=== PATIENT | male | born 1945 | race Caucasian/White ===

== ENCOUNTER 2019-11-12 20:00 | Emergency (ER) | payer MEDICARE ==
[2019-11-12 20:28] LABS: BASO % 0.2 % (0.0-1.0); EOS # 0.1 10*3/uL (0.0-0.4); EOS % 2.7 % (1.0-4.0); HEMATOCRIT 38.1 % (42.0-52.0); LYMPH # 1.3 10*3/uL (1.3-4.4); LYMPH % 30.9 % (27.0-41.0); MEAN CELL VOLUME 98.2 fl (80.0-94.0); MEAN CORPUSCULAR HGB CONC 32.5 g/dl (33.0-37.0); MEAN PLATELET VOLUME 9.4 fl (9.6-12.3); MONO # 0.3 10*3/uL (0.1-1.0); MONO % 8.4 % (3.0-9.0); NEUT # 2.3 10*3/uL (2.3-7.9); NEUT % 57.3 % (47.0-73.0); PLATELET COUNT AUTOMATED 72 10*3/uL (130-400); RED BLOOD COUNT 3.88 10*6/uL (4.50-5.90); RED CELL DISTRI WIDTH 13.3 % (0-14.5)
[2019-11-12 20:43] LABS: ALBUMIN 2.9 gm/dl (3.1-4.5); ALKALINE PHOSPHATASE 56 U/L (45-117); BUN 13 mg/dl (7-24); CHLORIDE 108 mmol/L (98-107); CREATININE 0.87 mg/dL (0.70-1.30); POTASSIUM 3.9 mmol/L (3.5-5.1); SGOT/AST 23 IU/L (3-35); SGPT/ALT 20 U/L (12-78); SODIUM 142 mmol/L (136-145); TOTAL PROTEIN 5.8 gm/dL (6.4-8.2)
[2019-11-12 20:50] LABS: ACETAMINOPHEN (TYLENOL) < 5.0 ug/ml (10-30)
[2019-11-12 20:55] LABS: ETHYL ALCOHOL < 3.0 mg/dl (<3)
[2019-11-12 21:49] LABS: URINE AMPHETAMINES < 1000 (1000ng/ml); URINE BARBITURATES < 200 (200ng/ml); URINE BENZODIAZEPINES < 200 (200ng/ml); URINE CANNABINOIDS (THC) < 50 (50ng/ml); URINE COCAINE < 300 (300ng/ml); URINE METHADONE < 300 (300ng/ml); URINE OPIATES < 300 (300ng/ml)
[2019-11-12 21:54] LABS: URINE PHENCYCLIDINE < 25 (25ng/ml)
[2019-11-12 21:58] LABS: BACTERIA TRACE; BILIRUBIN NEGATIVE (NEGATIVE); BLOOD NEGATIVE (NEGATIVE); CLARITY CLEAR (CLEAR); COLOR YELLOW (YELLOW); EPITHELIAL CELLS 0-2; GLUCOSE NEGATIVE (NEGATIVE); KETONE 2+ (NEGATIVE); LEUKO ESTERASE NEGATIVE (NEGATIVE); NITRITE NEGATIVE (NEGATIVE); RBC 0-2 rbc/hpf (0-2); SPECIFIC GRAVITY 1.025 (1.005-1.030); UROBILINOGEN 0.2 E.U./dl (0.2-1.0); WBC 0-2 wbc/hpf (0-5)
[2019-11-12] MEDS ORDERED: LIPITOR10 MG PO (23:58)
[2019-11-12] MEDS ORDERED: ASPIRIN ADULT L81 M1 PO (23:58)
[2019-11-12] MEDS ORDERED: DEPAKOTE250 MG PO (23:59)
[2019-11-13] MEDS ORDERED: EXELON1 EACH T
[2019-11-13] MEDS ORDERED: DEPAKOTE ER250 MG PO
[2019-11-13] MEDS ORDERED: Amaryl2 MG PO
[2019-11-13] MEDS ORDERED: KEPPRA750 MG PO (00:01)
[2019-11-13] MEDS ORDERED: TRAD5TAB1 PO (00:02)
[2019-11-13] MEDS ORDERED: GLUCOPHAGE500 M1 PO (00:02)
[2019-11-13] MEDS ORDERED: VITAMIN D3125 MC1 PO (00:03)
== END 2019-11-12 22:48 | disposition home health service (06) ==
LOC: ED 20:00
PROVIDERS: Emergency Medicine
DX: F63.81 Intermittent explosive disorder (principal); E11.9 Type 2 diabetes mellitus without complications; F03.90 Unspecified dementia, unspecified severity, without behavioral disturbance, psychotic disturbance, mood disturbance, and anxiety; Z03.818 Encounter for observation for suspected exposure to other biological agents ruled out

== ENCOUNTER 2019-11-12 22:46 | Inpatient (IN) | payer MEDICARE ==
[~2019-11-12] VITALS: Ht 182.8 cm; Wt 84.6 kg
[2019-11-12 22:50] VITALS: BP 139/83
--- NOTE | 2019-11-12 22:50 | NUR ---
TOMAS ANTHONYYOHANNES a 74 year old M admitted via wheel chair from the EMERGENCY ROOM as a voluntary admission. Arrived on unit at 2250. ALLERGIES: NO KNOWN ALLERGIES. Vital signs are: 99.7-97-20 139/83. The client signed the following forms with stated understanding: Authorization For The Release of Medical Information, Clothing List, Consent to Voluntary Admission and Hospitalization, Consent and Release Forms/Receipt of Rights, Acknowledgement of Advance Directive Information, Behavioral Health Consent Form. Admitted under the services of Dr. ERROL BERNARDJACQUELINE. A search was conducted and hazardous articles were removed. Client was oriented to the unit. TIM MONTGOMERY
[2019-11-12] MEDS ORDERED: ASPIRIN ADULT L81 M1 PO (23:58)
[2019-11-12] MEDS ORDERED: LIPITOR10 MG PO (23:58)
[2019-11-12] MEDS ORDERED: DEPAKOTE250 MG PO (23:59)
[2019-11-13] MEDS ORDERED: EXELON1 EACH T
[2019-11-13] MEDS ORDERED: Amaryl2 MG PO
[2019-11-13] MEDS ORDERED: DEPAKOTE ER250 MG PO
[2019-11-13] MEDS ORDERED: KEPPRA750 MG PO (00:01)
[2019-11-13] MEDS ORDERED: TRAD5TAB1 PO (00:02)
[2019-11-13] MEDS ORDERED: GLUCOPHAGE500 M1 PO (00:02)
[2019-11-13] MEDS ORDERED: VITAMIN D3125 MC1 PO (00:03)
--- NOTE | 2019-11-13 00:15 | NUR ---
Called and notified Dr. Moore regarding patient admission and consult was placed under Dr. Jefferson for medical management.
--- NOTE | 2019-11-13 00:30 | NUR ---
Dr. Moore here and talked with patient. Awaiting new orders.
--- NOTE | 2019-11-13 06:00 | NUR ---
Called and notified Dr. Elkins regarding patient falling in shower. Notified doctor of patient having an abrasion on back that was not present on admission and patient denies any pain or discomfort at this time. Dr. Elkins said to observe patient at this time.
[2019-11-13 06:21] LABS: CHOLESTEROL 152 mg/dL (<200); HDL CHOLESTEROL 49 mg/dl (40-60); LDL CHOLESTEROL 75 mg/dL (9-159); TRIGLYCERIDES 140 mg/dl (<150); VLDL CHOLESTEROL 28 mg/dL (6-40)
--- NOTE | 2019-11-13 06:24 | NUR ---
PT OBSERVED BY STAFF PACING AROUND ROOM COVERED IN BM, ALERT TO PERSON AND PLACE WITH CONFUSION. PT ASSISTED BY STAFF INTO SHOWER ROOM TO PROVIDE INCONTINENT CARE. THIS RN WAS TURNING ON WATER AND INFORMED THE PATIENT TO WAIT UNTIL THIS RN CAN ASSIST HIM IN SHOWER. PT PROCEEDED INTO SHOWER DESPITE DIRECTION FROM THIS RN TO WAIT AND FELL AT 0540. PT OBSERVED TO FALL ON LEFT SIDE, DID NOT HIT HEAD. PT DENIES ANY DISCOMFORT OR PAIN. PT ASSISTED TO CHAIR REQUESTED BY PATIENT. VITALS TAKEN AND RECORDED. T-97.4, P-97, R-18, BP 141/67, SPO2 96% ON ROOM AIR, BSG 115. ABRASION NOTED ON BACK, NO OTHER VISIBLE INJURIES NOTED. PT ABLE TO MOVE ALL EXTREMITIES WITH GOOD RANGE OF MOTION WITH NO COMPLAINTS OF DISCOMFORT, PT STATES "IM DOING JUST FINE, IM NOT EVEN HURT". PATIENT REMAINS ALERT AND ORIENTED PER BASELINE. NO DISTRESS NOTED. NURSING MID LEVEL CLINICIAN NOTIFIED AT 0558. DAUGHTER SUHA MALIK NOTIFIED AT 0624.
--- NOTE | 2019-11-13 06:39 | NUR ---
TOMAS ANTHONYYOHANNES [id number] Please refer to the physician's history and physical for past medical history, comorbid conditions, and allergies. Diagnosis: INTERMITTENT EXPLOSIVE DISORDER Wander Score: 19,LOW OR NO RISK WOUND DESCRIPTIONS: Wound Number: 1 Location of the wound: middle of back Type of wound: abrasion Thickness: Partial Size: 15.5cm x 3.0cm x 0.1cm Tunneling: none Undermining: none Sinus Tract: none Presence of Exudate: none Amount: None Color: Red Odor: None Periwound Skin Appearance: Normal Wound edges: approximated Pain (associated with wound): none at time of assessment How does patient state this happened? pt stated it was from the shower this morning Surface the patient is resting on: Proform SKIN PREVENTION RECOMMENDATION: 1. Pressure redistribution support surface as appropriate 2. Elevate heels 3. Remove boots/TEDS every shift and reapply 4. Head of bed 30 degrees as tolerated 5. Assess nutrition and hydration 6. Manage moisture 7. Avoid the use of containment devices while in bed 8. Use absorptive products on surfaces limit layers of linens on bed 9. Turn and reposition every 1-2 hours in bed and every 1 hour in chair as tolerated 10. Weight shifts every 15 minutes while up in chair 11. Offloading with pillows or device to keep heels elevated off bed 12. Monitor skin at least every shift 13. Inspect under medical devices twice a day WOUND TREATMENT RECOMMENDATIONS: Partial thickness guidelines: Cleanse middle of back with nss apply sureprep around the wound hydrogel to wound bed and cover with dsd every 2 days and prn for soiling. Cleanse periarea and buttocks with soap and water and apply hydraguard every shift and prn for soiling. Wheelchair cushion when oob.
[2019-11-13 06:58] LABS: VITAMIN D, 25-HYDROXY 48.1 ng/mL (30-100)
--- NOTE | 2019-11-13 07:03 | NUR ---
Patient slept approx, 3.5 hours throughout shift. Q 15 minute safety checks continued and maintained.
[2019-11-13 07:59] VITALS: BP 141/67
--- NOTE | 2019-11-13 08:04 | NUR ---
Patient eating breakfast in dining room with peers at this time. Respirations easy and regular. Vital signs stable. No overt distress. DAV GUTIERREZ
--- NOTE | 2019-11-13 09:06 | NUR ---
DR DUENAS ON UNIT TO ASSESS PT, UPDATE PROVIDED.
--- NOTE | 2019-11-13 09:37 | NUR ---
PHYSICAL THERAPY Physical Therapy evaluation completed on 3N with full evaluation to follow. Low complexity PT evaluation per chart review and evaluation, 223[address]. Recommend physical therapy per plan of care and SNF upon discharge. Thank you for this referral.
--- NOTE | 2019-11-13 09:41 | NUR ---
Occupational Therapy evaluation completed on three with full evaluation to follow. Recommend occupational therapy per plan of care and SNF upon discharge. Thank you for this referral. Tammy Obando OTR/L
--- NOTE | 2019-11-13 10:55 | NUR ---
With pt's permission, spoke with his daughter Krystyna Lima by phone. Informed Krystyna that [facility] was informed that pt was not allowed to return to [facility]. Krystyna was not aware of this. Krystyna shared that her mom/pt's Deb remains at [facility]. Deb has been there since 08/31/19 for skilled services. Pt was admitted on 10/25/19 after a fall at home. Krystyna stated that the pt did not have a previous dx of dementia. However, she shared that pt couldn't find Krystyna's home when he was invited over for dinner. He also believed that he was to meet Krystyna at a gas station one time but that was never discussed with Krystyna. These event happened after pt's was admitted to SNF. Krystyna stated that pt's is pt's DPOAHC. When asked, she stated that there is a DPOAHC document at pt's home. Will attempt to speak to pt's at . Direct phone number to Deb's room is [phone].
--- NOTE | 2019-11-13 11:44 | NUR ---
IMMODIUM 2MG PO GIVEN PER PHYSICIAN ORDER AT THIS TIME FOR DIARRHEA. PT WITH 3 EPISODES OF DIARRHEA THIS AM. WILL MONITOR FOR EFFECTIVENESS.
--- NOTE | 2019-11-13 11:46 | NUR ---
P- CONFUSION, ST MEMORY GAPS NOTED, UNDERLYING IRRITABILITY NOTED WHEN STAFF ATTEMPTS TO ASSIST PT WITH HANDS ON CARE. NONCOMPLIANT WITH FALL PRECAUTIONS. I- ORIENTATION, MOOD AND BEHAVIORS ASSESSED. ASSESSED PT FOR SI/HI, INTENT OR PLAN. ASSESSED PT FOR S/S HALLUCINATIONS, PARANOIA AND/OR DELUSIONS. MEDICATIONS ADMINISTERED PER PHYSICIAN'S ORDERS. ASSISTANCE WITH ADL CARE PROVIDED NEEDED. ENCOURAGED PT TO ATTEND AND PARTICIPATE IN [employer] [facility] GROUPS AND ACTIVITIES. R- PT IS ALERT AND ORIENTED TO PERSON, DURING AM MED PASS PT WAS ABLE TO STATE "I THINK I'M IN THE HOSPITAL". PT UNABLE TO STATE WHICH HOSPITAL. PT UNABLE TO STATE DAY, MONTH OR YEAR WITHOUT USE OF NEWSPAPER TO PROVIDE CORRECT DATE. PT CORRECTLY IDENTIFIED NEERAJ BOLTON PRESIDENT. ST MEMORY GAPS NOTED T/O SHIFT, PT OBSERVED WANDERING HALLS X2 LOOKING FOR "ROOM 500". REORIENTED TO ROOM 316. WHEN THIS RN ASSISTED PT OOB FOR LUNCH PT STATES "WHERE AM I?" REORIENTED AGAIN. PT ACCEPTS REALITY EASILY. MOOD APPEARS STABLE, PT DENIES FEELING SAD, DEPRESSED OR ANXIOUS. PT REPORTS HIS MOOD IS "HENNY HAPPY". PT DENIES SI/HI, INTENT OR PLAN. PT DENIES HALLUCINATIONS, NO RESPONSE TO INTERNAL STIMULI NOTED. NO PARANOIA OR DELUSIONS NOTED. PT HAS BEEN PLEASANT UPON INTERACTION WITH EXCEPTION OF WHEN RN ATTEMPTS TO ASSIST PT WITH HANDS ON CARE. PT SLIGHTLY IRRITABLE STAFF ATTEMPTED TO ASSIST PT IN CHANGING SOILED PANTS, ATTEMPTED TO SHUT BATHROOM DOOR TO KEEP STAFF FROM COMING IN TO ASSIST. PT NONCOMPLIANT WITH FALL RISK PRECAUTIONS DESPITE EDUCATION AND ENCOURAGEMENT, PT STATES "I KNOW I TOOK A LITTLE SPILL THIS MORNING, BUT THAT WAS MY FAULT. THEY TOLD ME TO WAIT AND I DIDN'T, BUT I'M OK NOW". FREQUENT REMINDERS PROVIDED FOR PT TO ASK FOR ASSISTANCE WITH TRANSFERS AND AMBULATION D/T UNSTEADY GAIT/FALL RISK. PT DENIES PAIN/DISCOMFORT. MED COMPLIANT WITHOUT DIFFICULTY. NO AGGRESSIVE BEHAVIORS DISPLAYED. P- PLAN TO CONTINUE CURRENT TX, CONTINUE TO MONITOR MOOD AND BEHAVIORS, PROVIDE APPROPRIATE REORIENTATION, REDIRECTION AND 1:1 NEEDED. CONTINUE TO ENCOURAGE MEDICATION COMPLIANCE WELL GROUP ATTENDANCE AND PARTICIPATION.
--- NOTE | 2019-11-13 12:10 | NUR ---
Spoke with Talisha the Supervisor Wall Mirror Department at [facility]. Pt. is short term at facility and was there for SNF. Pt. was not participating in therapy and was having behaviors at the facility which progressed to him having to be restrained yesterday. Pt. is also at the facility for SNF. Talisha states that patient was admitted to the facility in the same room for therapy after a fall due to unable to be home alone due to dementia and confusion. Talisha is to speak to the today concerning her discharge plans from their facility and is actually going to ask about plans for . Talisha said that she will notify clipper counters of requests.
--- NOTE | 2019-11-13 12:37 | NUR ---
Pt requested to lay down in bed after lunch. This RN assisted pt to bed room, bed alarm activated. Educated pt re: use of call button and fall risk precautions. Encouraged pt to press call button prior to getting up so staff could assist. Pt agreed. A few moments later pt's bed alarm sounding. This RN and 2nd RN immediately responded to pt's room to find pt ambulating to bathroom. This RN attempted to assist pt, pt shut door to bathroom after he entered and states "Please don't come in. I can do it myself". Education again provided re: fall risk precautions. Pt states "Oh, I only fall in the shower. I'd like my privacy". This RN remained outside bathroom door per pt preference. Pt completed tolieting needs independently w/o difficulty. Pt then returned to bed. This RN assisted pt in covering with blankets, pt states "Thanks a million. Thank you so much for taking care of me". Bed alarm again activated and pt instructed to utilize call button before getting OOB. Pt states "Ok, but I won't get up. I'll just stay here til dinner time".
--- NOTE | 2019-11-13 17:25 | NUR ---
Patient was finishing up his dinner and started taking food off of other patient trays. Educated patient on not taking food off of other patients trays and educated on patient being a diabetic. Patient stated "Oh it is fine. I am no diabetic. You didnt see anything here. Dont you know I am trying to figure out if I am going to this girl in [place] or not". Patient then started getting up with an unsteady gait, educated on asking for assistance prior to getting up. Patient waved his hand at staff as if gesturing to walk away. Assisted patient getting into bed with bed alarm intact and educated on using call light if need assistance. 5 minutes later patient's bed alarm was going off, two RN's went down to patients room and patient was already in the doorway of his bathroom. Pt stated "What you need to come in here too?". Educated and encouraged patient on using fall precautions. Pt stated "I dont need you in here. I do not fall. Now stay out". Stood outside patients bathroom door and made sure patient did not need any assistance frequently. Once patient was done, assisted back into bed, and educated/encouraged to use fall precautions/bed alarm intact/showed button on bed to call before getting up. Q15 minute checks maintained for safety.
[2019-11-13 20:00] VITALS: BP 118/61
--- NOTE | 2019-11-13 22:03 | NUR ---
DR MCLEAN UPDATED ABOUT PATIENT WITH INCREASED PAIN TO LEFT FLANK AREA. PATIENT WITH BRUISE TO LEFT FLANK AREA. PATIENT WITH STIFFNESS AND LIMITED RANGE OF MOTION TO LEFT LOWER EXTREMITY.
--- NOTE | 2019-11-13 22:23 | NUR ---
DR MCLEAN ON UNIT TO SEE PATIENT. DR MCLEAN TO ADD IN NEW ORDERS
--- NOTE | 2019-11-13 22:30 | NUR ---
NURSING FACILITIES CLERK UPDATED WITH NEW ORDER FROM DR MCLEAN ABOUT CT SCAN WITH CONTRAST. NURSING FACILITIES CLERK UPDATED THAT CART WILL BE NEEDED TO TRANSFER PATIENT FOR CT SCAN AND FOR ASSISTANCE ON THE FLOOR WHILE NURSING STAFF TRANSFERRED PATIENT FOR CT SCAN
--- NOTE | 2019-11-13 22:45 | NUR ---
ATTEMPT FOR IV INSERTION X 2. FIRST ATTEMPT WITH 22 GAUGE IN RIGHT ANTICUBITAL FOR IV INSERTION. ABLE TO ADVANCE CATHETER BUT RESISTANCE MET WHEN ATTEMPTING TO FLUSH IV SITE AND DID NOT HAVE BLOOD RETURN. TOURNIQUET AND IV CATHETER REMOVED AND PRESSURE DRESSING APPLIED. SECOND ATTEMPT IN LEFT ANTICUBITAL WITH 22 GAUGE WITH IV INSERTION. TOURNIQUET REMOVED.IV SITE FLUSHED WITHOUT DIFFICULTY AND WITH +BLOOD RETURN. TRANSPARENT DRESSING APPLIED AT SITE. IV SITE BEING USED FOR CT SCAN WITH CONTRAST.
--- NOTE | 2019-11-13 23:00 | NUR ---
NURSING SUPERVISORS ON UNIT WITH CART TO TRANSFER PATIENT TO CT SCAN AND TO ASSIST NURSING WHILE NURSING STAFF ASSISTING PATIENT TO CT SCAN
--- NOTE | 2019-11-13 23:05 | NUR ---
PATIENT OFF UNIT VIA CART WITH THIS NURSE AND SECURITY X [address] SCAN WITH CONTRAST. PATIENT STABLE PRIOR TO LEAVING THE UNIT
--- NOTE | 2019-11-13 23:18 | NUR ---
PATIENT RETURNED FROM CT SCAN WITH CONTRAST. PATIENT STABLE AT TIME OF RETURNING TO UNIT
--- NOTE | 2019-11-13 23:30 | NUR ---
P-CONFUSION I-REDIRECTION WITH 1:1 THERAPEUTIC INTERVENTIONS AND PRESENT REALITY. EDUCATE AND ENCOURAGE MEDICATION COMPLIANCE. R-PATIENT MEDICATION COMPLIANT AT HS. PATIENT REFUSED NOURISHMENT AT HS BUT PROVIDED FLUIDS. PATIENT INCONTINENT AT HS. PATIENT COMPLAINT OF LEFT FLANK PAIN. PATIENT REFUSED ANY PRN PAIN MEDICATION AT THIS TIME. PATIENT STATING "WELL, LET ME TELL YOU WHAT HAPPENED. I WAS IN THE SHOWER YESTERDAY. THEY SAID NOT TO STEP THERE IN THAT SPOT BECAUSE IT WAS SLIPPERY. I STEPPED IN THE SLIPPERY SPOT AND FELL ANYWAY". PATIENT WITH NO SUICIDAL OR HOMICIDAL IDEATIONS. PATIENT WITH NO DELUSIONS OR HALLUCINATIONS AT THIS TIME. P-CONTINUE TO ENCOURAGE MEDICATION COMPLIANCE, CONTINUE TO PRESENT REALITY, ENCOURAGE GROUP THERAPY WHILE AWAKE
--- NOTE | 2019-11-13 23:50 | NUR ---
DR MCLEAN UPDATED AND AWARE ABOUT CT SCAN RESULTS AND TO REVIEW THE RESULTS
--- NOTE | 2019-11-14 04:16 | NUR ---
Upon discharge recommend patient to follow up for wound care in outpatient setting continue current wound care orders at discharging facility.
--- NOTE | 2019-11-14 06:53 | NUR ---
PATIENT SLEPT 5 HOURS OF INTERRUPTED SLEEP THROUGHOUT SHIFT. Q 15 MINUTE CHECKS MAINTAINED. 24 HR chart check completed. PATIENT REMOVED 22 GAUGE FROM LEFT ANTECUBITAL THIS SHIFT AFTER CT SCAN TEST COMPLETED. CATHETER INTACT. NO DRESSING APPLIED DUE TO NOT BLEEDING AND 22 GAUGE CATHETER FOUND ON FLOOR BY THIS NURSE. PATIENT DENIES PAIN IN LEFT ARM AT IV SITE
[2019-11-14 08:00] VITALS: BP 117/66
--- NOTE | 2019-11-14 09:35 | NUR ---
PHYSICAL THERAPY Patient seen this am for therapy visit and was sitting up in activity room chair upon therapist arrival. Patient identified by name / and was pleasant this morning voicing no new c/o's at this time. OT general assistant was also present for observation only this session as patient transfers sit to stand, Supervision and ambulates ad jazmin in hallway with no AD. Patient demonstrated decreased B arm swing during straight line gait, 75'x 1 to his room, then additional 125'x 1, demonstrating improved B arm swing, however became more "wobbly" secondary to uneven step sequence. Patient needed multiple v/c's to improve gait sequence and tolerated eyes open / closed with no LOB. Patient unable to complete single leg stance secondary to immediate LOB each side and returned to activity room chair. Patient remained under [facility] staff Supervision and will continue per POC as tolerated, total treatment time 18 minutes. Jayce Watts, ADVERTISING SALES ASSOCIATE
--- NOTE | 2019-11-14 09:36 | NUR ---
Dr. Kunz notified of wound care recommendations.
--- NOTE | 2019-11-14 09:50 | NUR ---
OT NOTE Prior to start of session reported to charge nurse Carlee that therapy would be coming to treat this pt. Pt was seen this A.M. 1:1 for 20 minute OT session with HEAT SEAL OPERATOR and nursing staff present for observation only. Upon arrival pt was sitting upright in the dining odonnell. Pt identified by name and and had no complaints at this time. Sit to stand completed from chair level with SBA for safety followed by functional mobility to his bedroom with SBA. Pt had bouts of unsteady stance with LOB to the R that required Comfort to correct. Challenged pt's dynamic standing balance while weight shifting, crossing midline, and reaching over all planes. Pt was able to maintain F+/G- standing balance throughout. Pt transferred on/off standard commode with SBA due to being impulsive and presenting with poor safety awareness. Educated pt on slowing down and safety awareness, pt verbalized understanding however presented with poor carry over. Pt was left sitting upright in the dining odonnell under [facility] staff supervision. Continue with rec D/C plan to SNF. AMANDA Nash/Nemesio
--- NOTE | 2019-11-14 11:39 | NUR ---
Nutritional Support Services Note: Pt has an abrasion to his back after a fall in the shower. Appetite is good. Regular diet as ordered with a night snack daily. [place] food perferences and encourage intake. Will follow if needed. No other nutrition intervention needed at this time. Yessenia Alvarez Rdn Ld
--- NOTE | 2019-11-14 14:14 | NUR ---
Shift chart check completed.
--- NOTE | 2019-11-14 15:04 | NUR ---
Spoke with pt's Deb by phone. Confusion was noted in Deb during conversation. Deb stated that she is wanting pt to return home with her. However, Deb is currently at [facility] where pt is unable to return to. When asked, Deb stated that she has no idea when she will discharge home because she has yet to walk on her one leg after surgery. Attempted to explain to Deb that pt cannot return home alone due to safety concerns. Deb then stated that pt could live with their daughter Krystyna. Will plan to speak to Krystyna about above conversation.
--- NOTE | 2019-11-14 16:02 | NUR ---
P- ISOLATIVE TO ROOM, CONFUSION I- ASSESS MOOD, ORIENTATION, SI/HI, HALLUCINATIONS, DELUSIONS OR PAIN. ENCOURAGE TO ATTEND/PARTICIPATE IN GROUP WITH PEERS FOR EMOTIONAL SUPPORT AND SOCIALIZATION. ENCOURAGE TO INTERACT WITH STAFF AND PEERS. PROVIDE WITH ACTIVITIES PT ENJOYS. ENCOURAGE TO COME OUT OF ROOM FOR MEALS. PROVIDE MEDICATIONS ON TIME WITH EDUCATION ON EACH. PROVIDE ONE ASSISTANCE WHILE AMBULATING, ADLS, AND CARE DUE TO UNSTEADY GAIT AT TIME. ENCOURAGE TO MAINTAIN COMPLIANCE WITH FALL PRECAUTIONS. R- PATIENT IS ALERT TO PERSON ONLY WITH MEMORY DEFICITS STRONGLY NOTED. NOT RECEPETIVE TO REORIENTATION. DENIES SI/HI, HALLUCINATIONS OR PAIN. NO S/S OF INTERACTING WITH INTERNAL STIMULI. NO DELUSIONAL OR PARANOID THOUGHT PROCESS NOTED. NO S/S OF DISTRESS NOTED, RESPS EVEN AND UNLABORED ON ROOM AIR. PATIENT REAMINS ISOLATIVE TO ROOM, COMES OUT FOR MEALS. EATING AND DRINKING ADEQUATELY. 1:1 INTERACTION SLIGHTLY EFFECTIVE. PATIENT STATES THAT HE FEELS FINE TODAY, DENIES BEING DEPRESSED/SAD/ANXIOUS. PATIENT AMBULATES WITH AN UNSTEADY GAIT AND REQUIRES ONE ASSISTANCE. PT REFUSES TO MAINTAIN WITH FALLING STAR PROGRAM. EDUCATION INEFFECTIVE. MEDICATION COMPLIANT. ABLE TO VOICE NEEDS AND MAKE KNOWN. INTERACTIVE WITH PEERS AND STAFF WHEN HE COMES DOWN FOR MEALS. P- ASSESS MOOD, ORIENTATION, SI/HI, HALLUCINATIONS, DELUSIONS, OR PAIN EVERY SHIFT. PROVIDE MEDICATIONS ON TIME WITH EDUCATION ON EACH. REORIENT WITH CONFUSION. ENCOURAGE TO COME OUT OF ROOM AND ATTEND GROUP. PROVIDE ONE ASSISTANCE WITH AMBULATING, ADLS, AND CARE DUE TO UNSTEADY GAIT. ENCOURAGE TO FOLLOW FALL PRECUATIONS. ALARMS INTACT, NONSKID SOCKS, CLUTTER FREE ENVIORNMENT. Q15 MINUTE CHECKS MAINTAINED FOR SAFETY.
[2019-11-14 19:49] VITALS: BP 113/64
--- NOTE | 2019-11-14 21:21 | NUR ---
24 HR chart check completed.
--- NOTE | 2019-11-14 21:53 | NUR ---
P-CONFUSION I-REORIENT, ADMINISTER MEDS, MONITOR SLEEP R-PT HAS BEEN PLEASANTLY CONFUSED THIS EVENING. ALERT TO PERSON ONLY. SPENT LEISURE TIME IN THE DINING ROOM SOCIALIZING WITH PEERS. NO BEHAVIORS. STATED THAT HE IS "FEELING JUST FINE. THANK YOU FOR ASKING". DENIES SUICIDAL FEELINGS. DENIES SENSORY DISTURBANCE & NONE HAS BEEN EVIDENT. NO DELUSIONS VOICED. AMBULATING IN THE DINING ROOM. ATE SNACK. HS BEDSIDE GLUCOSE 227. COMPLIANT WITH MEDICATIONS. P-CONTINUE TO MONITOR
--- NOTE | 2019-11-15 05:20 | NUR ---
PT HAS SLEPT QUIETLY PAST 2214
--- NOTE | 2019-11-15 06:21 | NUR ---
AM BEDSIDE GLUCOSE 142
--- NOTE | 2019-11-15 07:12 | NUR ---
OT NOTE Prior to coming to floor spoke with Mai and reported that therapy was coming to treat this pt. Pt was seen this A.M. 1:1 for 12 minute OT session with PARK NATURALIST and nursing staff present for observation only. Upon arrival pt was supine in bed asleep. Pt was easily aroused to verbal stimuli and identified by name and . Pt had no complaints at this time. Pt transferred supine to sit EOB with supervision. Pt was presented with his shoes for donning and pt threw them over the bed towards therapist. Pt then completed sit to stand from bed level with supervision followed by functional mobility around the room to the other side of the bed while gathering clothing with supervision. Pt doffed night pants and donned day pants with distant supervision while seated and donned shoes with distant supervision while seated. Pt was standing while picking items up from floor level while presenting with G- standing balance. Pt was left sitting upright on the EOB due to declining coming to the dining odonnell, [facility] staff notified. Continue with rec D/C plan to SNF. RAUL Nash
--- NOTE | 2019-11-15 07:20 | NUR ---
PHYSICAL THERAPY Patient seen this am 1;1 for therapy visit and was just awakening supine in bed upon therapist arrival. Patient identified by name / and reports no new c/o's at this time. OT civil engineering assistant was present this morning for observation only as patient was pleasant attempting to transfer to R side of bed. Patient without warning changed his direction, attempting to sit up on L side of bed, however bed side rail was raised as this immediately caused patient to become very agitated. Therapist assist patient by putting down bed side rail as patient completed sit to stand transfer, SBA, upon reaching for his shoes on floor, patient threw them over his bed to floor, then ambulated around bed, voicing " what are you still doing here" When asked if he wanted to walk down to activity room for breakfast, patient remained agitated, sat back down on EOB, yelling "why are you still here, leave me alone". Patient remained EOB sit under U staff Supervsion as staff informed of patients increased agitation. Will continue per POC as tolerated, total treatment time 12 minutes. Jayce Watts ,CLERICAL ASSOCIATE
[2019-11-15 07:58] VITALS: BP 108/62
--- NOTE | 2019-11-15 08:08 | NUR ---
Dr. Tao notified of wound care recommendations.
--- NOTE | 2019-11-15 08:15 | NUR ---
Treatment Plan meeting was held via telephone with Dr. Rodrigues RN, BRAND ADVOCATE-S and Consumer Product Advisor. Plan for discharge Next Week. Pt. was a short Term SNF Patient at [facility]. Pt. at this point has not met Criteria for return to SNF. Pt. is not participating in Therapy. Behaviors exhibited with Therapy. Pt. is complex Discharge due to No SNF need. is POA and is his decision Maker at this point and She has some Confusion. Working with Cecile garcia Pantograph Setter at [facility] to facilitate a safe discharge.
--- NOTE | 2019-11-15 12:11 | NUR ---
Received a voicemail message from pt's Deb stating that pt will discharge to his daughter Krystyna's home and that Krystyna was wondering what will be needed to get pt to her. This FPGA DESIGN ENGINEER-S phoned Krystyna and informed her of Deb's message. Krystyna paused and then stated that no, she had no intention of pt discharging to her home. Informed Krystyna of the conversation that this screen writer had with Deb yesterday. Also informed Krystyna that pt is unsafe to return home alone and that he must have 24 hour supervision. Explained to Krystyna that the recommendation is for pt to be discharged to a dementia unit. Discussed this further. Krystyna stated numerous times, "Well, how do I know what he needs?" This screen writer repeated the recommendation numerous times, as well. Krystyna also stated that she is not liable for pt. Discussed pt's finances and with what Krystyna shared, pt may be appropriate for Medicaid. Asked if Krystyna could complete a Medicaid form. Krystyna requested that this screen writer contact pt's in the [place] to complete the application. Explained to Krystyna that this screen writer's impression is that pt's would not be able to do so due to cognitive deficits. Krystyna offered no further assistance. After speaking to Krystyna, phoned [facility] in an attempt to speak to the social director. Left a message. Await return call.
[2019-11-15 20:00] VITALS: BP 138/72
--- NOTE | 2019-11-15 21:28 | NUR ---
24 HR chart check completed.
--- NOTE | 2019-11-15 22:52 | NUR ---
P-CONFUSION I-REORIENT, ADMINISTER MEDS, MONITOR SLEEP R-PT HAS BEEN PLEASANTLY CONFUSED THIS EVENING. ALERT TO PERSON ONLY. SPENT LEISURE TIME IN THE DINING ROOM SOCIALIZING WITH PEERS. NO BEHAVIORS. STATED THAT HE IS "PRETTY GOOD". DENIES SUICIDAL FEELINGS. DENIES SENSORY DISTURBANCE & NONE HAS BEEN EVIDENT. DID STATE, "I THOUGHT SOMEBODY WAS CHASING ME. BUT I CANT REMEMBER WHEN". AMBULATING IN THE DINING ROOM. REFUSED SNACK. HS BEDSIDE GLUCOSE 217. COMPLIANT WITH MEDICATIONS. P-CONTINUE TO MONITOR
--- NOTE | 2019-11-16 01:45 | NUR ---
PT AWAKE AT THIS TIME. WANDERED INTO THE HALLWAY & INTO ANOTHER PTS ROOM. WAS STATING, "I HAVE TO GO PAY HIM". REDIRECTION PROVIDED WITH 2 RNS PRESENT. PT WAS CONFUSED BUT AFTER A FEW MINUTES HE WAS COMPLIANT & RETURNED TO HIS BED. WARM BLANKET PROVIDED
--- NOTE | 2019-11-16 05:59 | NUR ---
PT HAS SLEPT PAST 2114 WITH A BRIEF AWAKENING SLEEPING APPX 6 HOURS
--- NOTE | 2019-11-16 06:00 | NUR ---
ATIVAN HAS BEEN EFFECTIVE. PT HAS SLEPT QUIETLY PAST 0130. AWAKE AT THIS TIME & BEING ASSISTED WITH TOILETING BY 2 STAFF
--- NOTE | 2019-11-16 06:35 | NUR ---
AM BEDSIDE GLUCOSE 140
--- NOTE | 2019-11-16 07:20 | NUR ---
PHYSICAL THERAPY Patient seen this am for therapy visit and was just awakening supine in bed upon therapist arrival. Patient identified by name / and reports no new c/o's at this time. OT blood and plasma laboratory assistant was present for observation only this session as patient was Independent with all transfers / mobility, demonstrating no LOB. Patient ambulated ad jazmin in hallway to activity room, > 150'x 1 and was quite pleasant this morning. Patient remained in chair at table in activity room, [facility] staff Supervision awaiting breakfast. Will continue per POC as tolerated, total treatment time 14 minutes. Jayce Watts, PRODUCE PRODUCTION TEAM MEMBER
--- NOTE | 2019-11-16 07:25 | NUR ---
OT NOTE Prior to coming to the floor spoke with Mera and reported that therapy was coming to the floor to treat this pt. Pt was seen this A.M. 1:1 for 25 minute OT session with APPRENTICE COOK and nursing staff present for observation only. Upon arrival pt was supine in bed. Pt identified by name and and had no complaints at this time. Pt transferred supine to sit EOB with distant supervision. Pt then completed sit to stand from bed level with followed by completing IADL task of making his bed with distant supervision. Pt then completed functional mobility around the room while gathering clothing with distant supervision. Pt then donned pants and shoes with distant supervision. Functional mobility was then completed to the bathroom where he completed toileting task with distant supervision. Functional mobility was then completed to the dining odonnell where he was left sitting upright under [facility] staff supervision. Continue with rec D/C plan to SNF. AMANDA Nash/Nemesio
[2019-11-16 08:00] VITALS: BP 118/69
--- NOTE | 2019-11-16 08:10 | NUR ---
Patient in dining room eating breakfast. Respirations easy and regular. Vital signs stable. No overt distress. Telehealth with Liliya Medina CNP. Updates provided. JARETH TONG
--- NOTE | 2019-11-16 08:15 | NUR ---
Treatment Plan meeting was held via telephone with Dr. Rodrigues, AMAN Lovell, RN, AT, MUSIC ASSISTANT-S and Poker Supervisor. Plan for discharge Next week. Pt. came to [facility] from [facility]. Awaiting return call from facility to discuss discharge Planning. Pt. is POA and is currently in the SNF at same facility and is his decision maker.
--- NOTE | 2019-11-16 10:49 | NUR ---
AM GROUP PT WAS PRESENT FOR GROUP THERAPY, MOVIE, COLORING, AND LOW STIMULATION; PT DID SOME WANDERING IN AND OUT, PLEASANT.
--- NOTE | 2019-11-16 11:39 | NUR ---
Left a message for suyapa Huber at [facility], requesting a return call. Await call.
--- NOTE | 2019-11-16 14:56 | NUR ---
OCCUPATIONAL THERAPY CO-SIGN I approve of the Occupational Therapy notes written above. MONA VANCE, OTR/L
--- NOTE | 2019-11-16 15:00 | NUR ---
Spoke to Cecile, social problems specialist at [facility]. Cecile confirmed that pt is unable to return there. Cecile was unable to offer a discharge plan for pt. She confirmed that it is her belief that pt's Deb, currently at [facility] for SNF, is cognitively unable to make decisions for pt. Pt's Deb is currently pt's DPOAHC. Cecile also confirmed that pt's daughter Krystyna Lima has not been helping to resolve the discharge concerns of both pt and pt's Deb. This singer songwriter will contact [facility] to inquire about assistance in planning a safe discharge for pt.
--- NOTE | 2019-11-16 15:08 | NUR ---
Clinical Updates faxed to [facility] Attn: Cecile.
--- NOTE | 2019-11-16 15:16 | NUR ---
PHYSICAL THERAPY CO-SIGN I approve of the Physical Therapy notes written above. Jocelyn Escalona PT
--- NOTE | 2019-11-16 15:16 | NUR ---
Left a voicemail message for Cecile Tejeda of [facility]. Await return call.
--- NOTE | 2019-11-16 19:46 | NUR ---
24 HR chart check completed.
[2019-11-16 20:01] VITALS: BP 120/89
--- NOTE | 2019-11-16 21:13 | NUR ---
P-CONFUSION I-REORIENT, ADMINISTER MEDS, MONITOR SLEEP R-PT PLEASANTLY CONFUSED. ALERT TO PERSON ONLY. KEPT TO HIMSELF THIS EVENING. NO BEHAVIORS. DENIES SUICIDAL FEELINGS. DENIES SENSORY DISTURBANCE & NONE HAS BEEN EVIDENT. ATE SNACK. HS BEDSIDE GLUCOSE 203. COMPLIANT WITH MEDICATIONS. NO PHYSICAL COMPLAINTS VOICED. P-CONTINUE TO MONITOR
--- NOTE | 2019-11-17 04:43 | NUR ---
PT HAS SLEPT QUIETLY PAST 2200
--- NOTE | 2019-11-17 06:46 | NUR ---
AM BEDSIDE GLUCOSE 123
[2019-11-17 07:54] VITALS: BP 130/82
--- NOTE | 2019-11-17 10:13 | NUR ---
AM GROUP PT WAS PRESENT FOR GROUP THERAPY, MOVIE, COLORING, AND LOW STIMULATION.
--- NOTE | 2019-11-17 16:45 | NUR ---
PM GROUP ACTIVITY WITH BEACH BALL COPING SKILLS/ POSITIVE REINFORCEMENT HELD THIS AFTERNOON. PT WAS PLEASANT AND INTERACTIVE WITH STAFF AND PEERS
[2019-11-17 20:00] VITALS: BP 126/80
--- NOTE | 2019-11-17 21:35 | NUR ---
Patient alert to self only with confusion noted. ST/LT memory deficits noted. Mood is calm and cooperative at this time but can be irritable at times. No overt s/s of any responding to internal stimuli noted at this time. Patient compliant with HS medications without any difficulty. Provided 1:1 for emotional support. Redirected/reoriented when needed. Plan to continue to encourage medication compliance. Also continue to provide emotional support and continue to redirect/reorient when needed/appropriate. Will continue to monitor moods/behaviors. Q 15 minute safety checks continued and maintained. See [facility] flowsheet for further documentation.
--- NOTE | 2019-11-18 00:11 | NUR ---
24 HR chart check completed.
--- NOTE | 2019-11-18 05:29 | NUR ---
Patient slept approx. 7 hours throughout shift. Q 15 minute safety checks continued and maintained.
[2019-11-18 07:56] VITALS: BP 122/78
--- NOTE | 2019-11-18 08:05 | NUR ---
Patient resting quietly at this time. Respirations easy and regular. Vital signs stable. No overt distress. YAO BRAY, ON UNIT TO ASSESS PT. UPDATES PROVIDED. JARETH TONG RN
--- NOTE | 2019-11-18 18:14 | NUR ---
pt is pleasantly confused with ST/LT memory deficits. no adverse moods or behaviors noted at this time.
[2019-11-18 20:00] VITALS: BP 119/59
--- NOTE | 2019-11-18 21:35 | NUR ---
Patient alert to self only with confusion noted. ST/LT memory deficits noted. Mood is calm and cooperative at this time but can be irritable at times. Patient isolative to his room this evening. No overt s/s of any responding to internal stimuli noted at this time. Patient compliant with HS medications without any difficulty. Provided 1:1 for emotional support. Redirected/reoriented when needed. Plan to continue to encourage medication compliance. Also continue to provide emotional support and continue to redirect/reorient when needed/appropriate. Will continue to monitor moods/behaviors. Q 15 minute safety checks continued and maintained. See [facility] flowsheet for further documentation.
--- NOTE | 2019-11-19 00:22 | NUR ---
24 HR chart check completed.
--- NOTE | 2019-11-19 05:27 | NUR ---
Patient slept approx. 7 hours throughout shift. Q 15 minute safety checks continued and maintained.
--- NOTE | 2019-11-19 05:47 | NUR ---
TOMAS ANTHONYYOHANNES [id number] Please refer to the physician's history and physical for past medical history, comorbid conditions, and allergies. Diagnosis: INTERMITTENT EXPLOSIVE DISORDER Wander Score: 19,LOW OR NO RISK WOUND DESCRIPTIONS: Wound Number: 1 Middle of back area intact at time of assessment. No open areas noted at time of assessment. No drainage noted at time of assessment. Surface the patient is resting on: Proform SKIN PREVENTION RECOMMENDATION: 1. Pressure redistribution support surface as appropriate 2. Elevate heels 3. Remove boots/TEDS every shift and reapply 4. Head of bed 30 degrees as tolerated 5. Assess nutrition and hydration 6. Manage moisture 7. Avoid the use of containment devices while in bed 8. Use absorptive products on surfaces limit layers of linens on bed 9. Turn and reposition every 1-2 hours in bed and every 1 hour in chair as tolerated 10. Weight shifts every 15 minutes while up in chair 11. Offloading with pillows or device to keep heels elevated off bed 12. Monitor skin at least every shift 13. Inspect under medical devices twice a day WOUND TREATMENT RECOMMENDATIONS: D/C partial thickness guidelines to middle of back area intact
[2019-11-19 07:51] VITALS: BP 134/70
--- NOTE | 2019-11-19 08:00 | NUR ---
Patient eating breakfast in dining room with peers. Respirations easy and regular. Vital signs stable. No overt distress. DAV GUTIERREZ on unit to see pt at this time, update given. updated via telemedicine.
--- NOTE | 2019-11-19 08:15 | NUR ---
Treatment Plan meeting was held with Dr. Ravi Moser via telephone, RN, AT, ACCOUNT ASSOCIATE-S and Psychiatric Attendant. Plan for discharge is unclear at this time. Pt. cannot return to [facility]. Dtp Operator is working with [facility].
--- NOTE | 2019-11-19 08:55 | NUR ---
'S OFFICE NOTIFIED OF CONSULT FOR COMPETENCY.
--- NOTE | 2019-11-19 08:55 | NUR ---
PHYSICAL THERAPY Patient seen this am for therapy visit and was walking in the hallway upon therapist arrival. Patient identified by name / and was quite pleasant this morning. Patient performed TUG in 15.60 seconds, no AD, no LOB and is Independent with all transfers from multiple surfaces. Patient ambulates without AD, ad jazmin in U facility, Independent, demonstrating slow, steady sylvia, > 200'x 1 and no LOB. Patient returned to his room and remained EOB under U staff Supervision. Will discuss d/c planning with Supervising therapist as appropriate, total treatment time 16 minutes. Jayce Watts, SURGICAL SALES REPRESENTATIVE
--- NOTE | 2019-11-19 09:46 | NUR ---
Dr. Tao notified of wound care recommendations.
--- NOTE | 2019-11-19 11:03 | NUR ---
Spoke with Cecile Tejeda of [facility]. Discussed pt's current situation (unable to return to SNF, currently in SNF with noted confusion and memory deficits, unwilling for pt to discharge to LTC, daughter unwilling to assist with discharge plan, unsure of pt's financial status, unsure of payer source for next level of care). Cecile stated that if pt is deemed incompetent and a family member does not want to be pt's guardian, [facility] Support Services would need contacted to assist in guardianship process. Also, Cecile confirmed that [facility] does not have emergency guardianship. If pt would return home and in need of a guardian, [facility] would be the contact.
--- NOTE | 2019-11-19 11:32 | NUR ---
Pt has been deemed incompetent by Dr Orr who also completed the Statement of Expert Evaluation. Phoned Cecile, social service at [facility]. Inquired about the possibility of a competency evaluation for pt's Deb. Explained to Cecile that a determination is needed of Deb's competency so that the next course of action can be taken in pt's discharge planning. If Deb is incompetent, then guardianship of pt should be pursued. Cecile stated that she would contact the visiting psychologist to discuss. Await return call.
--- NOTE | 2019-11-19 13:00 | NUR ---
GROUP NOTE - "WHAT MAKES YOU HAPPY AND SATISFIED" PT ACTIVELY PARTICIPATED IN GROUP BY IDENTIFYING POSITIVES IN HIS LIFE WHICH ARE MEANINGFUL TO HIM AND MAKE HIM FEEL HAPPY AND SATISFIED. THESE TOPICS WERE FURTHER DISCUSSED IN GROUP SETTING WITH STAFF AND PEERS.
--- NOTE | 2019-11-19 15:51 | NUR ---
Received a voicemail message from Cecile at [facility] who states that she had spoken to the visiting psychologist. The psychologist stated that he will not do a competency evaluation through telehealth and he will not be at the building. Therefore, pt is unable to have an evaluation for competency at this time.
--- NOTE | 2019-11-19 16:06 | NUR ---
Shift chart check completed.
--- NOTE | 2019-11-19 16:23 | NUR ---
PT IS PLEASANTLY CONFUSED WITH ST/LT MEMORY DEFICITS NOTED. NO ADVERSE MOODS OR BEHAVIORS NOTED THIS SHIFT. PT IS ALERT AND ORIENTED TO SELF ONLY, OTHERWISE CONFUSED. RESPS EASY AND EVEN ON ROOM AIR. MOOD IS STABLE, AFFECT APPROPRIATE. SPEECH IS WNL AND COHERENT, ABLE TO MAKE NEEDS KNOWN WITHOUT DIFFICULTY. PT DENIES SI/HI, INTENT OR PLAN. NO HALLUCINATIONS, PARANOIA OR DELUSIONS NOTED. NO AGGRESSIVE BEHAVIORS DISPLAYED. PT IS MEDICATION COMPLIANT WITHOUT DIFFICULTY. GOOD APPETITE WITH ADEQUATE FLUID INTAKE. NO DISTRESS NOTED. PLAN TO CONTINUE CURRENT TREATMENT.
--- NOTE | 2019-11-19 19:44 | NUR ---
24 HR chart check completed.
[2019-11-19 19:56] VITALS: BP 120/60
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
--- NOTE | 2019-11-20 04:55 | NUR ---
PT HAS SLEPT PAST 1914 WITH 2 BRIEF AWAKENINGS TO GO TO THE BATHROOM
--- NOTE | 2019-11-20 06:35 | NUR ---
AM BEDSIDE GLUCOSE 96
[2019-11-20 07:50] VITALS: BP 120/89
--- NOTE | 2019-11-20 08:03 | NUR ---
OT NOTE Pt was seen this A.M. 1:1 for 20 minute OT session with PRE SALES SYSTEMS ENGINEER and nursing staff present for observation only. Upon arrival pt was supine in bed. Pt identified by name and and had no complaints at this time. Pt transferred supine to sit EOB I. Pt then completed functional mobility around the room while gathering clothing then completed dressing task I. Pt then completed functional mobility into the bathroom and completed toileting task I. Functional mobility was then completed back to the dining odonnell I where he was left sitting upright under [facility] staff supervision. Throughout all tasks pt had bouts of unsteady stance that he was able to self correct. Continue with rec D/C plan to SNF. AMANDA Nash/Nemesio
--- NOTE | 2019-11-20 08:20 | NUR ---
Patient eating breakfast in dining room with peers. Respirations easy and regular. Vital signs stable. No overt distress. DAV GUTIERREZ & updated on pt progress.
--- NOTE | 2019-11-20 08:30 | NUR ---
Treatment Plan meeting was held via telephone with Dr. Rodrigues, AMAN Lovell, RN, DATA EXAMINATION CLERK-S and Showroom Manager. Plan for discharge is inconclusive. Dr. Rodrigues is aware that [facility] is refusing to take patient back to facility. Scale Tester as well as Showroom Manager have been in touch with the Scale Tester Cecile at facility who states that Dr. Rodrigues "Told me that [facility] would help to find him alternate Placement". Pt. is the POA and is questioable on Mentation according to the Scale Tester at the facility and is also confused when she calls to [facility]. Will reach out to [facility] for Further Direction and Assistance of Ned.
--- NOTE | 2019-11-20 14:00 | NUR ---
PHYSICAL THERAPY CO-SIGN I approve of the Physical Therapy notes written above. ROXANN EPSTEIN PT, DPT
--- NOTE | 2019-11-20 14:00 | NUR ---
PHYSICAL THERAPY Patient has progressed well and met all PT goals. Patient independent throughout BHU. Discharge from PT services. Thank you. Coco Herrmann,PT,DPT
--- NOTE | 2019-11-20 15:18 | NUR ---
Shift chart check completed.
--- NOTE | 2019-11-20 16:12 | NUR ---
OCCUPATIONAL THERAPY CO-SIGN I approve of the Occupational Therapy notes written above. MONA VANCE, OTR/L
--- NOTE | 2019-11-20 16:12 | NUR ---
OT NOTE Patient to be discharged from occupational therapy services at this time secondary to meeting his functional goals. Patient is independent with ADLs, transfer, and has been independently completing mobility on the [facility]. No further OT indicated. Thank you for the referral. Tammy Obando, OTR/L
[2019-11-20 20:00] VITALS: BP 128/69
--- NOTE | 2019-11-20 20:16 | NUR ---
24 HR chart check completed.
--- NOTE | 2019-11-21 01:00 | NUR ---
P-CONFUSION I-REORIENT, ADMINISTER MEDS, MONITOR SLEEP R-PT PLEASANTLY CONFUSED. ALERT TO PERSON & NAME OF PRESIDENT. WANDERED INTO A FEMALE PTS ROOM & WAS IRRITABLE BUT RECEPTIVE TO REDIRECTION. PT WAS MOVED TO ANOTHER ROOM TODAY. SIGN WITH HIS NAME ON IT PLACED ON THE DOOR. ATE SNACK. HS BEDSIDE GLUCOSE 248. COMPLIANT WITH MEDICATIONS. NO PHYSICAL COMPLAINTS VOICED. P-CONTINUE TO MONITOR
--- NOTE | 2019-11-21 05:40 | NUR ---
PT HAS SLEPT PAST 2129
--- NOTE | 2019-11-21 06:47 | NUR ---
AM BEDSIDE GLUCOSE 99
--- NOTE | 2019-11-21 07:30 | NUR ---
Spoke with pt's daughter Krystnya yesterday afternoon. Explained that pt has been deemed incompetent and educated Krystyna about what this means. Discussed guardianship. Krystyna voiced that she was unsure about being pt's guardian and asked if pt's could be pt's guardian. Explained to Krystyna that during this freelance writer's conversations with pt's Deb, Deb has been confused and unrealistic. Explained further that Deb insists that pt can return home with her even though Deb is unable to return home herself. Reiterated that pt cannot return home by himself due to his confusion and memory deficits. Krystyna asked where pt was discharging to. Explained that this freelance writer is needing a decision maker for pt in order to move forward with pt's discharge. Provided Krystyna with phone number of [facility] Support Services in [facility] who would assist Krystyna with obtaining guardianship of pt if she so chooses to do so. Educated Krystyna about NFs in Krystyna's vicinity that have dementia units. Informed Krystyna that a call was also going to be made to the [facility] to discuss pt's current situation. After speaking with Krystyna, this freelance writer phoned [facility] and left a message for the [facility] requesting a return call.
[2019-11-21 08:00] VITALS: BP 125/70
--- NOTE | 2019-11-21 08:15 | NUR ---
Treatment Plan meeting was held via telephone with Dr. Rodrigues, AMAN Lovell, FEDE, HVAC SERVICE TECHNICIAN-S and Spool Sorter. Plan for discharge next week. Pt. requires alternate placement due to [facility] refusing patient return to [facility] facility.
--- NOTE | 2019-11-21 12:15 | NUR ---
PT ATTEMPTING TO ELOPE. STATING HE IS LEAVING HE IS GOING FISHING. PT THEN POUNDING ON DOOR AND REDIRECTED TO DINNINGROOM. PT THEN BEGAN ARGUING WITH ANOTHER PEER AND TURING AN O2 CONCENTRATOR ON AND OFF. PT REDIRECTED TO QUIET ROOM. MEDICATION OFFERED AND PT REFUSED. FRANCO MÉNDEZ GIVEN ORDERED. SPOKE TO WOLF AFTER THE FACT AND WOLF COOPER CNP ORDERED ATIVAN 1MG PO OR IM Q4 HRS FOR AGITATION OR ANXIETY. WILL MONITOR EFFECTIVENESS OF MEDICATION. REATTEMPTED MEDICATION AT A LATER TIME AND WAS SUCCESSFUL WITH PO MEDICATION; HOWEVER PT REFUSED INSULIN.
--- NOTE | 2019-11-21 12:52 | NUR ---
Left Message for [facility] office. . Spoke with Cecile at [facility] who states that patient cannot return to facility. Inquired about Sig Change PASRR. Cecile states that " She was told that the Hospital would do it". Education Provided that it is the facility responsiblity to complete when patient has significant change in status and are sent to the Behavioral Health Unit. Cecile states "I Didn't know that and I will do it today". "I am new and it takes me about 2 hours to complete them".
--- NOTE | 2019-11-21 17:05 | NUR ---
P: INTRUSIVE/DISRUPTIVE BEHAVIORS I: REDIRECTED, REORIENTED, PROVIDED 1:1 FOR THERAPEUTIC COMMUNICATION, ENCOURAGED MEDICATION COMPLIANCE, MONITORED BEHAVIORS WITH Q15 MINUTE SAFETY CHECKS. R: PT REMAINS PLEASANTLY CONFUSED. LABILE AT TIMES. ST/LT MEMORY DEFICITS NOTED. PT REFUSED AM MEDS, THREW THEM AT RN. PT WANDERS HALLWAYS AND IN/OUT OF OTHERS ROOMS. NO HALLUCINATIONS OR DELUSIONS NOTED. NO SI/HI NOTED. UNABLE TO REDIRECT AND REORIENT PT. PT UNABLE TO SIT LONG FOR 1:1. P: CONTINUE TO ENCOURAGE PT TO BE MEDICATION COMPLIANT. REORIENT AND REDIRECT WHEN NEEDED. CONTINUE TO PROVIDE 1:1 FOR THERAPEUCTIC COMMUNICATION. CONTINUE TO MONITOR BEHAVIORS WITH Q15 MINUTE SAFETY CHECKS. SEE [facility] FLOWSHEET FOR SPECIFIC MONITORING.
[2019-11-21 20:00] VITALS: BP 124/80
--- NOTE | 2019-11-21 23:32 | NUR ---
P-CONFUSION, SEXUALLY INAPPROPRIATE. I-PRESENT REALITY AND REORIENT. PROVIDE 1:1 WITH THERAPEUTIC INTERVENTIONS. ENCOURAGE MEDICATION COMPLIANCE AND EDUCATE. MONITOR SLEEP. R- ALERT TO PERSON, APPROX PLACE, CONFUSED. PT ATTEMPTING TO GRAB ON OTHER FEMALE PEERS THIS HS, BELIEVES THEM TO BE HIS AND STATING "WE ARE JUST GOING TO BED". PT UNABLE TO REDIRECTED, BECOMES AGITATED. PT ALSO EXPRESSING VERBAL THREATS TOWARD STAFF WHEN OFFERED A SHOWER AND STATING "DO NOT ASK ME AGAIN". PT RECEIVED PRN ATIVAN 1MG PO AT 1956 DUE TO ESCALATING BEHAVIORS AND NON PHARMACOLOGICAL INTERVENTIONS BEING INEFFECTIVE. PT TOOK ALL HS MEDICATIONS WITHOUT DIFFICULTY. PT DENIES SI/HI, HALLUCINATIONS, OR PAIN. AMBULATORY WITH A STEADY GAIT, ASSIST X1, CONTINENT/INCONTINENT OF BOWEL AND BLADDER. PT CURRENTLY LAYING DOWN WITH EYES CLOSED, RESPIRATIONS EASY AND REGULAR, NO DISTRESS NOTED. PRN ATIVAN EFFECTIVE AT THIS TIME. P-CONTINUE TO MONITOR MOOD AND BEHAVIORS. MAINTAIN Q 15 MIN CHECKS AND PRN FOR SAFETY.
--- NOTE | 2019-11-22 05:25 | NUR ---
24 HOUR CHART CHECK COMPLETED.
--- NOTE | 2019-11-22 05:37 | NUR ---
PATIENT OBSERVED ON Q 15 MIN CHECKS TO HAVE SLEPT APPROX 8 HOURS UNINTERRUPTED. NO SIGNS OR SYMPTOMS OF DISTRESS NOTED.
[2019-11-22 07:54] VITALS: BP 121/70
--- NOTE | 2019-11-22 08:15 | NUR ---
Treatment Plan meeting was held via telephone with Dr. Rodrigues RN, GEOSCIENCES ASSOCIATE PROFESSOR-S and Forest Fire Fighter. Plan for discharge is unclear at this time. Pt. requires 24 hour care and supervision. Pt. came to [facility] from [facility] and they have refused to take patient back to their Facility. [facility] has been contacted. Family has not been supportive. is decision maker/POA is is confused herself and unable to understand that patient cannot return home. Will Follow.
--- NOTE | 2019-11-22 10:46 | NUR ---
DR SCHRADER AND TEAM ON UNIT TO ASSESS PT, UPDATE PROVIDED.
--- NOTE | 2019-11-22 11:46 | NUR ---
Left a message for the aministrator of [facility] requesting a return call. Await return call.
--- NOTE | 2019-11-22 11:47 | NUR ---
Spoke with Mariposa at the [facility] office to discuss status of [facility] denying pt's return and with the same NF not providing an alternative discharge plan. Provided Mariposa with further details. Mariposa stated that because pt did not reside there over 30 days, the NF can discharge him but that a written notice should have been provided to the pt and to [facility]. Mariposa also stated that the NF should have provided a safe discharge plan for pt. Mariposa will contact Geovanny Zamarripa, the [facility] for [facility]. Await a return call from Geovanny.
--- NOTE | 2019-11-22 12:58 | NUR ---
P- Confused, Labile, Aggression with increased confusion, Attempting to take food off of other peers trays. I- Assess mood, orientation, SI/HI, hallucinations, delusions or pain. Reorient frequently when confusion is noted. 1:1 therapeutic interaction, reassurance, and redirection provided during irritability and aggressive behavior due to increased confusion/taking food off of other people trays. Provide low stimuli/light environment and diversional activities when aggressive behavior is noted. Provide medications on time with education on each. R- Patient is alert to person only. Receptive to reorientation for a short while, reorientation will need to be provided frequently. ST/LT memory deficits strongly noted. Mood labile with sarcastic overtones. Denies SI/HI, hallucinations or pain. No s/s of interacting with internal stimuli; no paranoia or delusional thought process noted; no s/s of distress noted, resps even and unlabored on room air. Medication compliant with no difficulties. Eating and drinking adequately. During medication pass, nurse was talking with another patient about their medication; Patient started talking harshly to that nurse stating "She does not want it. If she does not want it then walk away". When trying to redirect patient, pt stated "That is my . You can not tell me to just leave her alone". Reoriented patient and redirected. Patient attempted to reach out to that nurse and pull her arm away that had the other patients medications in it. Patient was redirected out of the room. Patient became overly stimulated with to many people around him causing him to become angry and aggressive. Patient was redirected by a nurse to come down into the quiet room to try to relax and offered to read the newspaper. This was effective and patient calmed down. Patient was reoriented to where he was at, where his was, and appropriate behavior on the unit. Patient was receptive to reorientation and was understanding/agreed. Patient has remained calm and cooperative since. P- Assess mood, orientation, SI/HI, hallucinations, delusions or pain every shift. Reorient, redirect, and reassure with confusin/irritability/aggressive behaviors. Provide a low stimuli/light environment when aggressive behaviors are noted. Provide medications on time with education on each. Q15 minute checks maintained for safety. Falling star program maintained. Seizure precautions due to history.
--- NOTE | 2019-11-22 15:11 | NUR ---
Late Entry: Lengthy conversation yesterday afternoon with pt's daughter Shirley who resides in [place]. Explained to Shirley about pt's current status. Informed her that pt has been deemed incompetent and provided education about this and guardianship. Shirley shared about her interactions with pt and pt's and voiced her concerns. Shirley questioned why pt's cannot make discharge decisions for pt. Explained that this magnetic tape typewriter operator's interaction with pt's has not been realistic. Further explained that pt's keeps stating that pt can return home with her even though she remains in the NF. Shirley asked why pt's has not been tested for competency. Explained to Shirley that this magnetic tape typewriter operator did request this of the NF but was informed that their psychologist could not do the evaluation because he is unable to go into the NF. Shirley then asked if pt's could make a discharge decision with the help of her children. Confirmed that this was a possibility and that there mst be a safe discharge. Shirley then asked if pt could return home with supervision. Confirmed that pt could but that pt requires 24 hour supervision. Shirley stated that she would discuss options further with her sister Krystyna and their mother.
--- NOTE | 2019-11-22 18:25 | NUR ---
ANITA CHO FROM [facility] CALLED IN ASKING IF PT IS COMPETANT, ADVISED THAT PT HAS BEEN DEEMED INCOMPETANT TO MAKE HEALTHCARE DECISIONS. ANITA QUESTIONING IF WE ARE A LOCKED UNIT, ADVISED THAT WE ARE. PER ANITA [facility] HAS A LOCKED UNIT WHERE YOU MUST ENTER A CODE TO ENTER/EXIT THE BUILDING. ANITA QUESTIONING THE DC PLAN, ADVISED THAT FAR THIS NURSE KNOWS DR IS RECOMMENDING PLACEMENT FOR THE PT. PER ANITA SHE DOES NOT SEE WHY [facility] CANNOT PROVIDE CARE TO THIS PT. PER ANITA SHE WILL SPEAK WITH THE FACILITY AND CALL COLBY ALSO TOMORROW.
--- NOTE | 2019-11-22 18:36 | NUR ---
Patient was exit seeking down at the main doors. Nurse went down to try to redirect patient in a calm manner and patient turned around stating "I wont hit a girl but I will hit a man". A male mental health specialist came down to assist and pt stated "There's a man. Come one get closer, get closer" and pt started pulling a fist up and back in a hitting motion. Staff walked away from pt to try to let pt calm down to lower the stimuli. Patient remained aggressive, confused, and verbally aggressive. All nonpharmalogical interventions remained ineffective and patient continued to escalate. Geodon 10mg IM PRN given per orders at this time. Patient was swinging out attempting to hit and kick. Patient sitting in gerichair in a low stimuli environment monitoring patient. Will assess for effectiveness. Q15 minute checks maintained for safety.
[2019-11-22 19:00] VITALS: BP 155/79
[2019-11-22 19:30] VITALS: BP 130/73
--- NOTE | 2019-11-22 20:00 | NUR ---
PT FOUND BY STAFF IN A SITTING POSITION ON FLOOR INFRONT OF HIS LUCAS CHAIR IN QUIET ROOM AT 1930. WHEN QUESTIONED BY 2 RN'S, PATIENT STATED THAT HE SLID OUT OF HIS CHAIR ONTO THE FLOOR ON HIS BOTTOM. PT DENIES ANY DISCOMFORT/PAIN OR HITTING HIS HEAD. PT AT BASELINE ORIENTATION. PT WITH GOOD RANGE OF MOTION OF EXTREMITIES. NO VISIBLE INJURIES NOTED. VITALS WNL, T- 98.6, P-88, R-18, BP-130/73, SPO2-88 ON ROOM AIR. NO DISTRESS NOTED. DR. CORONADO CALLED AND NOTIFIED WITH NO NEW ORDERS AT 1945, VENDING MACHINE TECHNICIAN CIERA RANGEL NOTIFIED AT 1946, DAUGHTER SUHA MALIK NOTIFIED AT 1952, DIRECTOR BO RUSHING UPDATED AT 1955.
--- NOTE | 2019-11-22 20:04 | NUR ---
PT OFF FLOOR FOR CT SCAN AT THIS TIME WITH RN AND SECURITY.
--- NOTE | 2019-11-22 20:14 | NUR ---
PT BACK ON FLOOR FROM CT AT THIS TIME.
--- NOTE | 2019-11-23 00:40 | NUR ---
P-CONFUSION I-PRESENT REALITY AND REORIENT. PROVIDE 1:1 WITH THERAPEUTIC INTERVENTIONS. ENCOURAGE MEDICATION COMPLIANCE AND EDUCATE. MONITOR SLEEP. R-PT ALERT TO SELF, APPROX PLACE, CONFUSED PER BASELINE. ST/LT MEMORY DEFICITS NOTED. PT WITH CALM DEMEANOR THIS HS, INTERACTIVE, PLEASANT. PT REQUIRES FREQUENT REORIENTATION THROUGHOUT SHIFT. EASILY REDIRECTED NEEDED. PT MEDICATION COMPLIANT WITHOUT DIFFICULTY, UNABLE TO EDUCATE DUE TO COGNITION. PT DENIES SI/HI, HALLUCINATIONS, OR DELUSIONS. NO NOTED RESPONDING TO INTERNAL STIMULI. NO SEXUALLY INAPPROPRIATE BEHAVIORS OBSERVED. NO PHYSICAL COMPLAINTS VOICED. PT X1 ASSIST WITH CARE, CONTINENT/INCONTINENT OF BOWEL AND BLADDER. NO DISTRESS NOTED. P-CONTINUE TO MONITOR MOOD AND BEHAVIORS. MAINTAIN Q 15 MIN CHECKS AND PRN FOR SAFETY.
--- NOTE | 2019-11-23 05:46 | NUR ---
24 HOUR CHART CHECK COMPLETE.
--- NOTE | 2019-11-23 05:50 | NUR ---
PATIENT OBSERVED ON Q 15 MIN CHECKS TO HAVE SLEPT APPROX 5 HOURS UNINTERRUPTED.
[2019-11-23 07:46] VITALS: BP 120/68
--- NOTE | 2019-11-23 08:07 | NUR ---
Patient resting quietly in room at this time. Respirations easy and regular. Vital signs stable. No overt distress. YAO Manuel, assessed pt via telehealth. Updates provided. JARETH TONG
--- NOTE | 2019-11-23 08:15 | NUR ---
Treatment Plan meeting was held via telephone with Dr. Rodrigues, AMAN Lovell, FEDE, CLOTHING MANAGER-S and Welding Technician. Plan for discharge remains unclear. Pt. is unable to return to [facility]. This patient is a placment issue.
--- NOTE | 2019-11-23 09:29 | NUR ---
AM GROUP "CRAFTING". PT WAS PRESENT AND PARTICIPATED IN AM GROUP.
--- NOTE | 2019-11-23 11:00 | NUR ---
Received Call from Pt. daughter Shirley requesting to speak with the Pattern Attendant. Shirley left message that the she would like referrals faxed to [facility] and [facility]. Notified Mai the Pattern Attendant that Pt. daughter would like to speak with her.
--- NOTE | 2019-11-23 11:14 | NUR ---
Spoke with pt's daughter Shirley who is requesting that referrals be made to [facility] and [facility] in [place]. Discussed payer resource for NF. Shirley stated that after speaking to fuels sales representative at [facility], pt most likely will need Medicaid.
--- NOTE | 2019-11-23 13:18 | NUR ---
Referral faxed to [facility] Attn: Katie
--- NOTE | 2019-11-23 13:36 | NUR ---
Referral faxed to [facility] Attn:Estrella.
--- NOTE | 2019-11-23 13:51 | NUR ---
PM GROUP MOVIE TIME- PT PRESENT DURING GROUP.
--- NOTE | 2019-11-23 14:58 | NUR ---
This AM, left a voicemail message for christina Hobbs, requesting a return call.
--- NOTE | 2019-11-23 15:14 | NUR ---
PASRR submitted online in [facility]. Copy placed in Patient chart.
--- NOTE | 2019-11-23 15:16 | NUR ---
Additional Clinicals Faxed to [facility].
[2019-11-23 20:00] VITALS: BP 132/67
--- NOTE | 2019-11-24 01:16 | NUR ---
P-CONFUSION I-REDIRECTION WITH 1:1 THERAPEUTIC INTERVENTIONS AND PRESENT REALITY. EDUCATE AND ENCOURAGE MEDICATION COMPLIANCE. R-PATIENT MEDICATION COMPLIANT AT HS. PATIENT REFUSED NOURISHMENT AT HS BUT PROVIDED FLUIDS. PATIENT INCONTINENT AT HS. PATIENT WITH NO SUICIDAL OR HOMICIDAL IDEATIONS. PATIENT WITH NO DELUSIONS OR HALLUCINATIONS AT THIS TIME. PATIENT AT TIMES REFERRING TO FEMALE PEER HIS BUT WAS REDIRECTABLE. PATIENT LOOKING FOR A PAIR OF BOOTS AND PREOCCUPIED WITH NURSING STAFF'S TENNIS SHOES STATING "I REALLY LIKE EVERYONE'S SHOES". PATIENT WITH FLIGHT OF IDEAS AT TIMES BUT REDIRECTALE. P-CONTINUE TO ENCOURAGE MEDICATION COMPLIANCE, CONTINUE TO PRESENT REALITY, ENCOURAGE GROUP THERAPY WHILE AWAKE
--- NOTE | 2019-11-24 05:23 | NUR ---
PATIENT SLEPT 6 HOURS OF INTERRUPTED SLEEP THROUGHOUT SHIFT. Q 15 MINUTE CHECKS MAINTAINED. 24 HR chart check completed.
[2019-11-24 07:52] VITALS: BP 128/70
[2019-11-24 19:52] VITALS: BP 136/60
--- NOTE | 2019-11-24 23:48 | NUR ---
P-CONFUSION I-REDIRECTION WITH 1:1 THERAPEUTIC INTERVENTIONS AND PRESENT REALITY. EDUCATE AND ENCOURAGE MEDICATION COMPLIANCE. R-PATIENT MEDICATION COMPLIANT AT HS. PATIENT REFUSED NOURISHMENT AT HS BUT PROVIDED FLUIDS. PATIENT WITH NO SUICIDAL OR HOMICIDAL IDEATIONS. PATIENT WITH NO DELUSIONS OR HALLUCINATIONS AT THIS TIME. PATIENT WITH SHORT TERM AND CATERING ADMINISTRATIVE ASSISTANT MEMORY DEFICITS P-CONTINUE TO ENCOURAGE MEDICATION COMPLIANCE, CONTINUE TO PRESENT REALITY, ENCOURAGE GROUP THERAPY WHILE AWAKE
--- NOTE | 2019-11-25 06:50 | NUR ---
AM BEDSIDE GLUCOSE 91
--- NOTE | 2019-11-25 07:52 | NUR ---
Patient eating breakfast in dining room with peers. Respirations easy and regular. Vital signs stable. No overt distress. DAV GUTIERREZ
[2019-11-25 07:59] VITALS: BP 130/71
--- NOTE | 2019-11-25 10:30 | NUR ---
on unit to see pt at this time.
--- NOTE | 2019-11-25 18:52 | NUR ---
NO ADVERSE MOODS OR BEHAVIORS NOTED. PLEASANTLY CONFUSED. PT DENIES SI/HI, INTENT OR PLAN. PT DENIES HALLUCINATIONS, NO RESPONSE TO INTERNAL STIMULI NOTED. NO PARANOIA OR DELUSIONS NOTED. MED COMPLIANT WITHOUT DIFFICULTY. NO AGGRESSIVE BEHAVIORS NOTED. PLAN TO CONTINUE CURRENT TX, CONTINUE TO MONITOR MOOD AND BEHAVIORS, PROVIDE APPROPRIATE REORIENTATION, REDIRECTION AND 1:1 NEEDED. CONTINUE TO ENCOURAGE MEDICATION COMPLIANCE WELL GROUP ATTENDANCE AND PARTICIPATION.
[2019-11-25 20:00] VITALS: BP 137/70
--- NOTE | 2019-11-25 22:50 | NUR ---
P-CONFUSION I-PRESENT REALITY AND REORIENT. PROVIDE 1:1 WITH THERAPEUTIC INTERVENTIONS. ENCOURAGE MEDICATION COMPLIANCE AND EDUCATE. MONITOR SLEEP. R-PT ALERT TO SELF, APPROX PLACE, CONFUSED PER BASELINE. ST/LT MEMORY DEFICITS NOTED. PT WITH CALM DEMEANOR THIS HS, INTERACTIVE, PLEASANT. PT REQUIRES FREQUENT REORIENTATION THROUGHOUT SHIFT. EASILY REDIRECTED NEEDED. PT MEDICATION COMPLIANT WITHOUT DIFFICULTY, UNABLE TO EDUCATE DUE TO COGNITION. PT DENIES SI/HI, HALLUCINATIONS, OR DELUSIONS. NO NOTED RESPONDING TO INTERNAL STIMULI. NO SEXUALLY INAPPROPRIATE BEHAVIORS OBSERVED. NO PHYSICAL COMPLAINTS VOICED. PT X1 ASSIST WITH CARE, CONTINENT/INCONTINENT OF BOWEL AND BLADDER, AMBULATORY WITH A STEADY GAIT. NO DISTRESS NOTED. P-CONTINUE TO MONITOR MOOD AND BEHAVIORS. MAINTAIN Q 15 MIN CHECKS AND PRN FOR SAFETY.
--- NOTE | 2019-11-26 05:27 | NUR ---
24 HOUR CHART CHECK COMPLETED.
--- NOTE | 2019-11-26 05:44 | NUR ---
PATIENT OBSERVED ON Q 15 MIN CHECKS TO HAVE SLEPT APPROX 6 HOURS WITH X1 BRIEF AWAKENING TO USE THE RESTROOM WITH ASSISTANCE. NO DISTRESS NOTED.
[2019-11-26 07:46] VITALS: BP 146/73
--- NOTE | 2019-11-26 10:53 | NUR ---
DR BURCH ON UNIT TO ASSESS PT, UPDATE PROVIDED.
--- NOTE | 2019-11-26 14:23 | NUR ---
PATIENT IS ALERT TO PERSON WITH CONFUSION AND AWARE OF BEING IN THE HOSPITAL. MOOD IS STABLE, PLEASANT DEMEANOR. NO VOICED STATEMENT OF HI/SI OR PAIN. NO RESPONSE TO INTERNAL STIMULI. MEDICATION COMPLAINT. Q 15 MINUTE SAFETY CHECKS. 1 PERSON ASSIST WITH ACTIVITIES OF DAILY LIVING, CONTINENT OF BOWEL AND BLADDER. SET UP FOR MEALS, INTAKES ARE GOOD WITH ADEQUATE FLUIDS. INTERACTIVE WITH STAFF AND OTHER PATIENTS. CONTINUE TO MONITOR FOR AGGRESSION, SUICIDAL IDEATIONS. PROVIDE ONE ON ONE, REDIRECTION NEEDED.
[2019-11-26 20:00] VITALS: BP 140/76
--- NOTE | 2019-11-26 20:51 | NUR ---
ISOLATIVE IN DININGROOM. INTERACTIVE WITH STAFF. SNACK PROVIDED BY STAFF. GAIT STEADY. MEDICATION COMPLIANT. ORIENTED TO SELF. NO AGGRESSION NOTED.
--- NOTE | 2019-11-26 20:51 | NUR ---
ISOLATIVE IN DININGROOM. INTERACTIVE WITH STAFF. SNACK PROVIDED BY STAFF. GAIT STEADY. MEDICATION COMPLIANT. ORIENTED TO SELF. NO AGGRESSION NOTED.
--- NOTE | 2019-11-27 02:38 | NUR ---
24 HR chart check completed.
--- NOTE | 2019-11-27 06:24 | NUR ---
SLEPT APPROX 8 HOURS UNINTERUPTED
--- NOTE | 2019-11-27 06:37 | NUR ---
AM BEDSIDE GLUCOSE 103
[2019-11-27 07:45] VITALS: BP 130/75
--- NOTE | 2019-11-27 08:15 | NUR ---
Treatment Plan meeting was held via telephone with Dr. Rodrigues, AMAN Lovell, FEDE and Hand Fabric Cutter. Plan for discharge Once Placement is secured will follow with [facility] to follow referrals.
--- NOTE | 2019-11-27 12:01 | NUR ---
Clinical Updates faxed to [facility] Attn: Estrella.
--- NOTE | 2019-11-27 12:28 | NUR ---
PT Pleasant cooperative with all interactions, medication compliant, set up only with meals. No si/hi or delusions noted this shift. Ambulated in hallway with staff 1 assist due to unsteady gait. Monitor 15 min checks, side effects and response to medications and interactions with others. Pt does like to remove himeself from high stimulation areas.
--- NOTE | 2019-11-27 13:09 | NUR ---
Referral faxed to [facility] for Placement.
--- NOTE | 2019-11-27 14:59 | NUR ---
Left Message with [facility] Ext [phone] for further assistance with Placement. Also call to [facility] of [phone] Complaint line to notify of [facility] refusing Pt. return to facility and no assistance from facility for alternate placement.
--- NOTE | 2019-11-27 16:40 | NUR ---
Spoke with Geovanny Zamarripa at [facility] office. She had spoke with [facility] and the peoplesoft administrator as well as the Vocational Counselor, She had spoken with patient who had reported to her that patient daughter had found an accepting facility for patient to complete his therapy. Advised Geovanny that referrals had been faxed but no facility had accepted patient. Discussed with Geovanny that facility has not been helpful with assisting to find alternate placement for patient. Geovanny had reported to the facility that she was told that placement had been found for patient according to the , Otherwise they were required to take the patient back. Assured Geovanny that alternate placement had not been secured and no calls had been received from family to regional planner. Geovanny states that she will call [facility] samanta and speak with Coco the Office Cashier and return call to the Hospital and notify of further updates. Will follow.
[2019-11-27 19:59] VITALS: BP 153/82
--- NOTE | 2019-11-27 20:42 | NUR ---
CLIMBED UNDER TABLE SAYING HE HAD TO FIX THE LEGS. ASSISTED UP TO CHAIR WITH 3 STAFF. REDIRECTED TO NOT SIT OR LAY ON FLOOR AND WE HAVE PEOPLE TO FIX THINGS. NODDED UNDERSTANDING
--- NOTE | 2019-11-27 20:54 | NUR ---
CLIMBED UNDER TABLE SAYING HE HAD TO FIX THE LEGS. ASSISTED UP TO CHAIR WITH 3 STAFF. REDIRECTED TO NOT SIT OR LAY ON FLOOR AND WE HAVE PEOPLE TO FIX THINGS. NODDED UNDERSTANDING. SITTING IN COMFY CHAIR WATCHING TV
--- NOTE | 2019-11-27 21:00 | NUR ---
LAUGHING AND TALKING WITH ME ABOUT THE MOVIE. STATES HE LOVES THESE HENNY OF FUN MOVIES. (MICH FORD). READY FOR BED. AGREEABLE TO USE WALKER TO STABLIZE GAIT.
--- NOTE | 2019-11-28 02:11 | NUR ---
24 HR chart check completed.
--- NOTE | 2019-11-28 06:19 | NUR ---
SLEPT 7.5 HOURS
--- NOTE | 2019-11-28 06:37 | NUR ---
AM BEDSIDE GLUCOSE 100
[2019-11-28 07:47] VITALS: BP 134/69
--- NOTE | 2019-11-28 08:15 | NUR ---
Treatment Plan meeting was held via telephone with Dr. Rodrigues, AMAN Lovell RN, SIGN WRITER LETTERER OR PAINTER-S and Hydraulic Controls Technician. Plan for discharge remains unclear. No accepting facilities at this time.
--- NOTE | 2019-11-28 09:53 | NUR ---
Phoned christina Zamarripa to discuss difficulty in discharge plan for pt. Geovanny stated that she would return this editorial writer's call shortly.
--- NOTE | 2019-11-28 11:06 | NUR ---
Lengthy conversation with christina Sawyer, in regards to [facility] not allowing pt to return and the difficulty in finding a safe discharge for pt. Geovanny shared that she spoke with the pt's Deb who stated that her daughter has handled this and that she did not require the services of the christina. This CAMP TENDER-S informed Geovanny that this information is not correct and pt's daughter has not found a place for pt to discharge. Informed Geovanny of all of the difficulties that this scientific writer has encountered with pt's family and [facility]. These difficulties being: [facility] refusing pt's return, unrealistic expectation of pt's that pt can return home alone, pt's daughter Krystyna's reluctance to get involved, no assistance from anyone involved to provide financial information to determine payer source for next LOC, the inablity for [facility] to secure a competency evaluation for pt's to determine if she can make sound decisions for pt, and the PASRR not being completed by [facility]. Informed Geovanny that pt is not requiring an inpt psychiatric unit and pt has been ready for discharge. Geovanny stated that she was going to call pt's again and also speak further to [facility]. Await return call.
--- NOTE | 2019-11-28 15:17 | NUR ---
Received Call from Estrella at [facility]. They are currently still reviewing the Referral and Are interested if they can secure a payment source. Estrella has been in touch with family via telephone and they are unsure of the financials. Estrella has stated she is going to call the and speak with her about the medicaid application. Per Referral and Clinical updates [facility] is unable to skill Patient for SNF. Back up plan is [facility] can accept Pt. for SNF if family accepts the facility. Will continue to work with family on Placement and follow with Estrella [place].
[2019-11-28 20:01] VITALS: BP 123/69
--- NOTE | 2019-11-29 06:40 | NUR ---
Patient slept approx. 7.5 hours throughout shift. Q 15 minute safety checks continued and maintained.
[2019-11-29 08:00] VITALS: BP 129/69
--- NOTE | 2019-11-29 08:15 | NUR ---
Treatment Plan meeting was held via telephone with Dr. Rodrigues RN, SPINNING FRAME CLEANER-S and Felt Hat Mellowing Machine Operator. Plan for discharge is unclear. Pt. requires alternate Placement due to [facility] refusing to allow return to facility. [facility] has been contacted as well as [facility] with no assistance. [facility] currently is still in Review Process of referral due to no secondary insurance or Financials. Estrella from Facility was to speak with Pt. 11/28/2019. Back up is [facility] can take patient SNF if Family accepts. Pulmonary Specialist to reach out to Daughter in [place] today to discuss updates and discharge plans.
--- NOTE | 2019-11-29 08:58 | NUR ---
rounded and updated on pt progress via telemedicine. Medication orders updated per .
--- NOTE | 2019-11-29 12:09 | NUR ---
Olga inquiring about discharge plans. Advised Graciela From [facility] that Staff Research Associate still has to speak with the Daughter to see if she accepts [facility].
--- NOTE | 2019-11-29 12:18 | NUR ---
Left a voicemail message for pt's daughter Shirley requesting a return call to discuss issues with pt's discharge. Await return call.
--- NOTE | 2019-11-29 12:25 | NUR ---
Spoke with Rosina at [facility]. Rosina stated that she has not yet attempted to speak to pt's Deb about payer source/Medicaid. Rosina stated that she plans on doing that yet today and will have an answer about pt acceptance/denial by tomorrow AM.
--- NOTE | 2019-11-29 12:26 | NUR ---
Currently no beds in Secured Dementia Unit. Declined Referral due to elopement risk.
--- NOTE | 2019-11-29 13:43 | NUR ---
Notifed by Mayte MISTRY that [facility] was on the phone and requesting a conference call with nursing. This process description writer took the call and learned that the technology administrator, liaison inspection laboratory assistant KASH, and the social service designee were requesting clinical information about pt. The technology administrator Coco stated that the ombudsman Geovanny Zamarripa was making multiple call to her daily in an attempt to have pt returned to [facility]. Coco then asked if pt required a locked behavioral unit. Both this process description writer and Mayte MISTRY stated that he did not. Coco shared that the tentative plan would be for pt to return but that she first must have a check in hand for 30 days. Coco stated that pt's stated that she was willing to do this. Per request, Sue Braxton digital sales planner, is faxing nursing notes and progress notes to Talisha at [facility].
--- NOTE | 2019-11-29 15:25 | NUR ---
Additional Clinicals faxed to [facility] Attn: Cecile.
[2019-11-29 20:00] VITALS: BP 149/66
--- NOTE | 2019-11-30 00:44 | NUR ---
P-CONFUSION I-REDIRECTION WITH 1:1 THERAPEUTIC INTERVENTIONS AND PRESENT REALITY. EDUCATE AND ENCOURAGE MEDICATION COMPLIANCE. R-PATIENT MEDICATION COMPLIANT AT HS. PATIENT REFUSED NOURISHMENT AT HS BUT PROVIDED FLUIDS. PATIENT WITH NO SUICIDAL OR HOMICIDAL IDEATIONS. PATIENT WITH NO DELUSIONS OR HALLUCINATIONS AT THIS TIME. PATIENT WITH SHORT TERM AND C SOFTWARE ENGINEER MEMORY DEFICITS. PATIENT WITH NO RESPIRATORY DISTRESS. P-CONTINUE TO ENCOURAGE MEDICATION COMPLIANCE, CONTINUE TO PRESENT REALITY, ENCOURAGE GROUP THERAPY WHILE AWAKE
--- NOTE | 2019-11-30 06:24 | NUR ---
Patient slept approx. 8 hours throughout shift with 1 awakening. Q 15 minute safety checks continued and maintained.
[2019-11-30 07:52] VITALS: BP 123/60
--- NOTE | 2019-11-30 08:00 | NUR ---
Patient in dining room eating breakfast with peers. Respirations easy and regular. Vital signs stable. No overt distress. Telehealth assessment by YAO Manuel. Updates provided. JARETH TONG
--- NOTE | 2019-11-30 09:26 | NUR ---
Spoke with Estrella at [facility] in [facility] concerning referral and acceptance. Pt. is accepted at facility and can discharge Tuesday/Tuesday. Daughter Krystyna is going to Private Pay if Pt. is unable to be skilled for PT/OT. Faxed PT/OT notes along with Clinical Updates and Copy of PASRR this a.m.
--- NOTE | 2019-11-30 09:33 | NUR ---
DR KRISHNA ON UNIT TO ASSESS PT, UDPATE PROVIDED.
--- NOTE | 2019-11-30 13:58 | NUR ---
Notified Graciela Chase from [facility] that Patient family had chosen [place].
--- NOTE | 2019-11-30 14:30 | NUR ---
GROUP THERAPY PT PRESENT FOR MOVIES, SNACK, AND REMINISCING. PT PLEASANT AND INTERACTIVE, LAUGHING AT JOKES AND MAINTAINING PLEASANT CONVERSATION.
[2019-11-30 20:00] VITALS: BP 127/74
--- NOTE | 2019-11-30 23:42 | NUR ---
P-CONFUSION I-REDIRECTION WITH 1:1 THERAPEUTIC INTERVENTIONS AND PRESENT REALITY. EDUCATE AND ENCOURAGE MEDICATION COMPLIANCE. R-PATIENT MEDICATION COMPLIANT AT HS. PATIENT PROVIDED NOURISHMENT AND FLUIDS AT HS. PATIENT WITH NO SUICIDAL OR HOMICIDAL IDEATIONS. PATIENT WITH NO DELUSIONS OR HALLUCINATIONS AT THIS TIME. PATIENT INTERACTING WITH PEERS IN DINING AREA THIS SHIFT.PATIENT WITH SHORT TERM AND LONG-TERM MEMORY DEFICITS. PATIENT WITH NO RESPIRATORY DISTRESS. P-CONTINUE TO ENCOURAGE MEDICATION COMPLIANCE, CONTINUE TO PRESENT REALITY, ENCOURAGE GROUP THERAPY WHILE AWAKE
--- NOTE | 2019-12-01 05:59 | NUR ---
PATIENT SLEPT 8 HOURS OF UNINTERRUPTED SLEEP THROUGHOUT SHIFT. Q 15 MINUTE CHECKS MAINTAINED. 24 HR chart check completed.
[2019-12-01 07:34] VITALS: BP 141/71
--- NOTE | 2019-12-01 08:42 | NUR ---
DR KRISHNA ON UNIT TO ASSESS PT, UPDATE PROVIDED.
[2019-12-01 20:02] VITALS: BP 148/70
--- NOTE | 2019-12-01 23:47 | NUR ---
No adverse moods or behaviors noted this shift. Patient remains at baseline confusion; reorientation effective. Patient has in bed since beginning of shift, refused HS snack. Medication compliant with no difficulties and education provided on each. Pleasant upon interaction. Denies SI/HI, hallucinations, or pain. No s/s of interacting with internal stimuli, no s/s of delusional/paranoid thought process noted. No s/s of distress noted, resps even and unlabored on room air. Upon assessment pt woke up pleasant and stated "Oh, thank you I need to get up and go to the hospital. I have tons of blood work I need to get done and take those medications". Pt was reoriented and redirected, effective. Falling star program in place, alarms intact, walker in patients reach. Q15 minute safety checks maintained.
--- NOTE | 2019-12-02 05:33 | NUR ---
24 HOUR CHART CHECK COMPLETED.
--- NOTE | 2019-12-02 05:59 | NUR ---
PATIENT OBSERVED ON Q 15 MIN CHECKS TO HAVE SLEPT APPROX 8 HOURS UNINTERRUPTED. NO DISTRESS NOTED.
--- NOTE | 2019-12-02 06:42 | NUR ---
BEDSIDE BLOOD GLUCOSE 108.
[2019-12-02 07:40] VITALS: BP 131/72
--- NOTE | 2019-12-02 11:14 | NUR ---
PATIENT IS ALERT TO PERSON AND SITUATION, AWARE OF BEING IN THE HOSPITAL. LONG/SHORT TERM MEMORY DEFICITS. MOOD IS STABLE, PLEASANT DEMEANOR. DENIES ANY HALLUCINATIONS, DELUSIONS, HI/SI OR PAIN. NO RESPONSE TO INTERNAL STIMULI OBSERVED. 1 PERSON ASSIST WITH ACTIVITIES OF DAILY LIVING, CONTINENT OF BOWEL AND BLADDER. SET UP FOR MEALS, INTAKES ARE GOOD WITH ADEQUATE FLUIDS. MEDICATION COMPLIANT. Q 15 MINUTE SAFETY CHECKS. AMBULATORY USING WALKER WITH STAFF STAND BY ASSIST. INTERACTIVE WITH NURSING STAFF, PARTICIPATED IN MORNING GROUP SESSION. CONTINUE TO MONITOR FOR AGGRESSION. PROVIDE ONE ON ONE, REDIRECTION/ORIENTATION NEEDED.
--- NOTE | 2019-12-02 16:06 | NUR ---
Shift chart check completed.
[2019-12-02 20:03] VITALS: BP 124/63
--- NOTE | 2019-12-03 00:19 | NUR ---
P-CONFUSION I-PRESENT REALITY AND REORIENT. PROVIDE 1:1 WITH THERAPEUTIC INTERVENTIONS. ENCOURAGE MEDICATION COMPLIANCE AND EDUCATE. MONITOR SLEEP. R-PT ALERT TO SELF, APPROX PLACE, PLEASANTLY CONFUSED. ST/LT MEMORY DEFICITS NOTED. PT WITH CALM DEMEANOR THIS HS, INTERACTIVE, PLEASANT. PT REQUIRES FREQUENT REORIENTATION THROUGHOUT SHIFT. EASILY REDIRECTED NEEDED. PT MEDICATION COMPLIANT WITHOUT DIFFICULTY, UNABLE TO EDUCATE DUE TO COGNITION. PT DENIES SI/HI, HALLUCINATIONS, OR DELUSIONS. NO NOTED RESPONDING TO INTERNAL STIMULI. NO PHYSICAL COMPLAINTS VOICED. PT X1 ASSIST WITH CARE, CONTINENT/INCONTINENT OF BOWEL AND BLADDER, AMBULATORY WITH A STEADY GAIT USING A WHEELED WALKER. NO DISTRESS NOTED. P-CONTINUE TO MONITOR MOOD AND BEHAVIORS. MAINTAIN Q 15 MIN CHECKS AND PRN FOR SAFETY.
--- NOTE | 2019-12-03 05:44 | NUR ---
PATIENT OBSERVED ON Q 15 MIN CHECKS TO HAVE SLEPT APPROX 7 HOURS UNINTERRUPTED. NO DISTRESS NOTED.
--- NOTE | 2019-12-03 05:52 | NUR ---
24 HOUR CHART CHECK COMPLETED.
--- NOTE | 2019-12-03 07:56 | NUR ---
Patient eating breakfast in dining room with peers. Respirations easy and regular. Vital signs stable. No overt distress. DAV GUTIERREZ [facility], [facility]- on unit to see pt at this time, update given.
[2019-12-03 08:00] VITALS: BP 126/77
--- NOTE | 2019-12-03 08:00 | NUR ---
on unit to see pt at this time, update given.
--- NOTE | 2019-12-03 09:00 | NUR ---
Treatment Plan meeting was held via telephone with Dr. Rodrigues, AMAN Lovell, FEDE, [employer] and Rod Hanger. Plan for discharge Today. Pt. accepted at [facility].
[2019-12-03] MEDS ORDERED: RIVASTIGMINE1 EAC2 T (09:38)
[2019-12-03] MEDS ORDERED: RISPERIDONE1 MG PO (09:38)
[2019-12-03] MEDS ORDERED: CITALOPRAM20 MG PO (09:38)
[2019-12-03] MEDS ORDERED: RISPERIDONE2 M2 PO (09:38)
[2019-12-03] MEDS ORDERED: DIVALPROEX SOD500 MG PO (09:38)
[2019-12-03] MEDS ORDERED: MEMANTINE HCL10 MG PO (09:38)
--- NOTE | 2019-12-03 11:09 | NUR ---
Pt was pleasantly confused while interacting with this program writer this AM. Observed pt interacting appropriately with his peers.
--- NOTE | 2019-12-03 12:28 | NUR ---
Left Message for Estrella at [facility] to inquire about discharge Plans for today.
--- NOTE | 2019-12-03 12:37 | NUR ---
notified of discharge for this afternoon.
--- NOTE | 2019-12-03 12:51 | NUR ---
No adverse moods or behaviors this shift. Pt is pleasant confused, polite and cooperative. Interacts well with staff and peers. Mood is stable, euthymic. Affect is broad range and appropriate. Speech is WNL and coherent, able to make needs known without difficulty. Pt denies SI/HI, intent or plan. No evidence of hallucinations, paranoia or delusions noted. Pt is medication compliant without difficulty. Displays good appetite with adequate fluid intake noted. No distress noted. Plan to continue current treatment.
--- NOTE | 2019-12-03 13:48 | NUR ---
Spoke to regarding med reconciliation for discharge.
--- NOTE | 2019-12-03 14:37 | NUR ---
Call placed to [facility] to give nurse to nurse report. Doughnut Icer to give the nurse who will be recieving our number and she will call back for report. Unit phone number provided.
--- NOTE | 2019-12-03 14:46 | NUR ---
Nurse to nurse report given to Felicia at [facility].
--- NOTE | 2019-12-03 15:00 | NUR ---
Pt declined discharge wound photos.
--- NOTE | 2019-12-03 15:12 | NUR ---
Patient is discharging today to [facility]. Follow-up will be with Dr Trent, visiting psychiatrist. While at [facility], pt's behaviors improved. Pt was pleasant with staff and peers. Pt remained pleasantly confused at dicharge.
--- NOTE | 2019-12-03 15:30 | NUR ---
[facility] SERVICE PRESENT, PATIENT ASSISTED TO [facility], ALL BELONGING AND DISCHARGE INSTRUCTIONS SENT WITH PATIENT OFF THE UNIT.
== END 2019-12-03 15:30 | DRG 883 ==
LOC: 3N 22:46
PROVIDERS: ADMIT Psychiatry & Neurology Psychiatry
DX: F63.81 Intermittent explosive disorder (principal); E44.0 Moderate protein-calorie malnutrition; F33.2 Major depressive disorder, recurrent severe without psychotic features; F02.81 Dementia in other diseases classified elsewhere, unspecified severity, with behavioral disturbance; E11.65 Type 2 diabetes mellitus with hyperglycemia; E87.8 Other disorders of electrolyte and fluid balance, not elsewhere classified; G30.9 Alzheimer's disease, unspecified; R41.9 Unspecified symptoms and signs involving cognitive functions and awareness; E78.5 Hyperlipidemia, unspecified; E55.9 Vitamin D deficiency, unspecified; R19.7 Diarrhea, unspecified; Z86.73 Personal history of transient ischemic attack (TIA), and cerebral infarction without residual deficits; Z87.891 Personal history of nicotine dependence; Z90.49 Acquired absence of other specified parts of digestive tract; Z79.82 Long term (current) use of aspirin; Z79.899 Other long term (current) drug therapy; Z79.84 Long term (current) use of oral hypoglycemic drugs; Z68.25 Body mass index [BMI] 25.0-25.9, adult